=== PATIENT | female | born 1955 | race Caucasian/White ===

== ENCOUNTER → 2024-06-11 15:33 | Outpatient (REF) | payer MEDICARE, SELFPAY | LOC: RAD 15:33 | PROVIDERS: ATTENDING PHYSICIAN Registered Nurse; FAMILY PHYSICIAN Family Medicine | DX: G44.85 Primary stabbing headache (principal) | CPT/HCPCS: 70450 ==

== ENCOUNTER 2024-08-07 16:20 | Emergency (ER) | payer MEDICARE, SELFPAY ==
[2024-08-07 16:24] VITALS: BP 173/115
[2024-08-07 16:52] LABS: % Basophils 0.8 % (0-2); % Eosinophils 1.8 % (0-6); % Immature Granulocytes 0.4 % (0-0.5); % Lymphocytes 27.2 % (20.5-51.1); % Neutrophils 60.8 % (42.2-75.2); Absolute Basophils 0.1 10^3/uL (0-0.2); Absolute Eosinophils 0.1 10^3/uL (0-0.7); Absolute Lymphocytes 2.1 10^3/uL (1.2-3.4); Absolute Monocytes 0.7 10^3/uL (0.1-0.6); Absolute Neutrophils 4.7 10^3/uL (1.4-6.5); Hematocrit 37.2 % (37.0-47.0); Hemoglobin 12.8 g/dL (12.0-16.0); Mean Corp Hgb Conc. 34.4 g/dL (33.0-37.0); Mean Corpuscular Hgb 31.5 pg (27.0-31.0); Mean Corpuscular Volume 91.6 fL (81.0-99.0); Mean Platelet Volume 9.8 fL (7.4-10.4); Nucleated Red Blood Cells % 0 %; Platelet Count 261 10^3/uL (130-400); Red Blood Cell Count 4.06 10^6/uL (4.20-5.40); White Blood Cell Count 7.7 10^3/uL (4.8-10.8)
[2024-08-07 16:53] LABS: Urine Albumin Negative (Neg - Trace); Urine Bilirubin Negative (Negative); Urine Character Clear (Clear); Urine Color Yellow; Urine Glucose Negative (Negative); Urine Ketone Negative (Negative); Urine Leukocyte 1+ (Negative); Urine Nitrite Negative (Negative); Urine Occult Blood 4+ (Negative); Urine Urobilinogen Negative (Neg - 1+); Urine pH 6.5 (5.0-9.0)
[2024-08-07 17:02] LABS: Urine Red Blood Cell 21-25 /HPF (0-2)
[2024-08-07 17:03] LABS: Urine Bacteria Moderate (Negative)
[2024-08-07 17:22] LABS: ALT (SGPT) 20 U/L (0-35); AST (SGOT) 28 U/L (14-36); Albumin 4.5 g/dl (3.5-5.0); Alkaline Phosphatase 82 U/L (38-126); Blood Urea Nitrogen 18 mg/dl (7-17); Calcium 9.4 mg/dl (8.4-10.2); Carbon Dioxide 32 mmol/L (22-30); Chloride 100 mmol/L (98-107); Glucose 103 mg/dl (70-99); Potassium 4.1 mmol/L (3.5-5.1); Sodium 139 mmol/L (135-145); Total Bilirubin 0.2 mg/dl (0.2-1.3); Total Protein 7.1 g/dl (6.3-8.2); eGFR > 60.00
[2024-08-07 20:14] VITALS: BP 183/105
--- NOTE | 2024-08-07 20:15 | ED.GENMED ---
History of Present Illness
General
Chief Complaint: Urinary Symptoms
Source: patient
Exam Limitations: none
Time Seen by Provider: 08/07/24 20:06
History of Present Illness
History of Present Illness:
This is a 68 year old female that comes in with c/o blood in her urine. States that she noticed yesterday that there was a little blood on the paper when she wiped. State that today there was more bleeding and she noticed that her urethra was red
and that it was protruding a little. States that she has lower abd bloating and pressure. States that she has to bare down to urinate. States that she has also had a slight headache for the past couple of days. Denies any fever, chills, chest pain,
SOB, nausea, vomiting, diarrhea, dizziness, urinary burning.
Past History
Past History
ED Past Medical History: Arrthythmia (SVT 2009 and 08/2011 resolved with Adenosine.), Psychiatric (Anxiety) and Other (Renal calculus)
ED Past Surgical History: Gynecological (Hysterectomy) and Orthopedic (Right wrist surgery, )
Social History
Tobacco: Non-smoker
Alcohol: Daily (Wine 1 glass)
Personal:
Living: with family
Employment: Employed
Review of Systems
Review of Systems
All Other Systems: ROS reviewed and negative except as documented in HPI and ROS
Constitutional: Reports no symptoms; Denies fever or chills
EENT: Reports no symptoms
Respiratory: Reports no symptoms; Denies cough or trouble breathing
Cardiac: Reports no symptoms; Denies chest pain
ABD/GI: Reports abdominal pain; Denies nausea, vomiting or diarrhea
: Reports other (Has to bare down to urinate); Denies dysuria, frequency or urgency
Musculoskeletal: Reports no symptoms
Skin: Reports no symptoms
Neurological: Reports headache; Denies dizzy
Psychiatric: Reports no symptoms
Phy Exam
General Physical Exam
General Presentation: well appearing and no apparent distress
General age: appears stated age
General Skin: warm and dry
General Habitus: normal
General Mental: alert
General Hydration: appears well hydrated
ENT Exam
ENT Exam: TM's normal, pharynx normal and neck supple
Eye Exam
Eye Exam: EOMI
Cardiovascular Exam
Cardiovascular Exam: regular rate/rhythm, no edema, no murmur and normal peripheral pulses
Pulmonary Exam
Pulmonary Exam: lungs clear, no respiratory distress, no rales, chest non tender, no crackles, no rhonchi, no wheezing and no cough
Gastrointestinal Exam
Gastrointestinal Exam: normal bowel sounds, soft, no organomegaly, no pulsatile mass, non distended and tender (Suprapubic tenderness)
Genitourinary Exam Female
Exam Female: other (Urethra slightly red and protruding)
Musculoskeletal Exam
Musculoskeletal Exam: full ROM and no edema
Skin Exam
Skin Exam: normal color, warm/dry, no rash and no petechia
Psychiatric Exam
Psychiatric Exam: normal mood/affect
Course
Orders/Labs/Results
Orders:
Orders
08/07/24 16:33
CBC/With Diff [Complete Blood Count/With Diff] Urgent
CMP [Comprehensive Metabolic Panel] Urgent
Urinalysis Reflex To Culture Urgent
Date Specimen was Collected: 08/07/24
Time Specimen was Collected: 16:23
Urine Microscopic Reflex Cult Urgent
Urine Culture Urgent
JULIANNE Source: U
Specimen Description:
Date Specimen was Collected: 08/07/24
Time Specimen was Collected: 16:23
08/07/24 20:15
CT Abd/pel Without Iv Or Oral Urgent
Comment:
Reason For Exam: Lower abd pressure, Has to bare down to urinate
Abnormal Lab Results
08/07/24
16:33
RBC 4.06 L 10^6/uL
(4.20-5.40)
MCH 31.5 H pg
(27.0-31.0)
Absolute Monos (auto) 0.7 H 10^3/uL
(0.1-0.6)
Carbon Dioxide 32 H mmol/L
(22-30)
BUN 18 H mg/dl
(7-17)
Glucose 103 H mg/dl
(70-99)
Ur Occult Blood Reflex 4+ A
(Negative)
Leukocyte Esterase Rfl 1+ A
(Negative)
Urine RBC 21-25 A /HPF
(0-2)
Urine WBC (Reflex) 11-15 A /HPF
(0-5)
Urine Bacteria (Reflex) Moderate A
(Negative)
08/07/24 16:33
08/07/24 16:33
Very slight Dehydration. Glucose nonfasting. Urine positive for infection.
Vital Signs
Initial and Last Documented VS:
Initial Vital Signs
Temp Pulse Resp BP Pulse Ox
98.5 F 80 14 173/115 98
08/07/24 16:24 08/07/24 16:24 08/07/24 16:24 08/07/24 16:24 08/07/24 16:24
Last Documented Vital Signs
Temp Pulse Resp BP Pulse Ox
97.9 F 68 16 165/108 98
08/07/24 20:14 08/07/24 22:15 08/07/24 22:15 08/07/24 22:15 08/07/24 22:15
MDM/Problems Addressed
Differential Diagnosis Includes:
UTI, Renal calculus,
MDM/Problems Addressed:
This is a 68 year old female that comes in with c/o blood with urination and that her urethra is slightly red and protruding.
Will get labs, Urine and CT scan to r/o renal calculus
Back into see patient. Reviewed CT scan and explained that she is constipated, and that there is no obstructing stone. Will give patient antibiotic here and a bottle of magnesium citrate for home. Patient to follow up with the PCP for repeat urine
in a few days. Return with any concerns.
Chronic conditions affecting care:
Renal calculus
Acute Exacerbation and/or Progression of Chronic Illness:
Renal calculus
*Radiology
Radiology exam reviewed: radiology read reviewed (CT- Constipation with moderate to large colonic fecal burden. No obstructive uropathy. 2mm nonobstructing calculus in the lower pole of the right kidney. NO acute inflammatory process within the
abdomen or pelvis. Relatively stable oblong low-attenuation pancreatic structures, supporting a benign ) and all reviewed NAD by ED Provider (CT cont-etiology. 2 tiny low-attenuation hepatic structures, too small to fully characterize. Statistically
likely cysts. Pulmonary parenchymal disease process, as described. Consider the possibility of allergic bronchopulmonary aspergillosis. )
*Pulse Oximetry
Patient hypoxic: no
*EKG
Interpreted by ED Provider?: NA
Rate: EKG- N/A
*[employer] Interpretation
Rate: [employer]- N/A
*Critical Care Note
Total Time (30-74mins, 75-104mins- exclusive of procedures): Not Applicable
ED Attending Note
-
Portions of this chart may have been created with voice recognition software.� Occasional wrong word or��sound alike� substitutions may have occurred due to the inherent limitations of voice recognition software.
Discharge Plan
Departure
Patient Disposition: Home (Routine Discharge)
Date of Disposition: 08/07/24
Time of Disposition: 22:45
Patient with high blood pressure during this ER visit?: Yes
Condition: Good
Covid-19: Not Applicable
Discharge Problem:
Urinary tract infection, Constipation
Instructions: Urinary Tract Infection, Adult (DC), Constipation, Adult ED, BLOOD PRESSURE
Prescriptions:
No Action
ejygswhgxb-ynjjjktvkdck-lsvlfx 1 CAP capsule
1 cap PO DAILY
lorazepam 0.5 MG tablet
0.5 mg PO Q4HPRN PRN (Reason: anxiety)
cholecalciferol (vitamin D3) [Vitamin D3] 400 UNIT capsule
400 unit PO DAILY
docosahexaenoic acid-epa 1 CAP capsule
1 cap PO DAILY
alendronate [Fosamax] 40 MG tablet
40 mg PO WEEKLY
venlafaxine 37.5 MG tablet
37.5 mg PO DAILY
Referrals:
Herman Mathews Jr., DO [Family Provider] - Follow up in 5-7 days
Activity Restrictions/Additional Instructions:
As discussed, you are positive for a urinary tract infection. Your CT shows that you have constipated. There is no obstructing renal calculus. There is a 2mm stone in the right kidney. Please increase your water intake to 8-8oz glasses daily. You
have been given your antibiotic here which is a one time dose. Please follow up with the family doctor for a repeat urine to make sure the infection is gone. You have also been given a bottle of Magnesium citrate. Please drink the entire bottle as
this will work from the top down to help with the constipation. IF YOU HAVE ANY OTHER CONCERNS PLEASE RETURN TO THE EMERGENCY ROOM.
Interventions
Interventions:
*Risk Screen - Suicide Last Done: 08/07/24 20:10
*General Assessment Last Done: 08/07/24 20:10
*Neglect/Abuse Screening Last Done: 08/07/24 20:10
ED- Fall Risk Assessment Last Done: 08/07/24 20:10
*ED COVID-19 Vaccine History Last Done: 08/07/24 20:10
ED-Female Genitourinary Assessment Last Done: 08/07/24 20:10
Discharge Date and Time
Print Language: BURKIN[place]
[2024-08-07 20:18] VITALS: BP 180/114
[2024-08-07 22:15] VITALS: BP 165/108
[2024-08-07] MEDS: MONUROL 3 GM PO (23:12)
[2024-08-07] MEDS: CITROMA 300 ML PO (23:12)
[2024-08-07 23:17] VITALS: BP 178/117
[2024-08-07 23:20] VITALS: BMI 19.7
[2024-08-07] MEDS: APRESOLINE 5 MG IV (23:30)
[2024-08-07 23:45] VITALS: BP 151/95
[2024-08-08] VITALS: BP 146/100
== END 2024-08-08 00:15 | disposition home or self-care (01) ==
LOC: EMR 16:20
PROVIDERS: Emergency Medicine; EMERGENCY PHYSICIAN Emergency Medicine; FAMILY PHYSICIAN Family Medicine
DX: N39.0 Urinary tract infection, site not specified (principal); K59.00 Constipation, unspecified; E86.0 Dehydration; I47.10 Supraventricular tachycardia, unspecified; F41.9 Anxiety disorder, unspecified; Z87.442 Personal history of urinary calculi; Z90.710 Acquired absence of both cervix and uterus
CPT/HCPCS: 99284; 96374; 74176; 80053; 81003; 81015; 85025; 87086

== ENCOUNTER → 2024-09-02 09:46 | Outpatient (REF) | payer MEDICARE, SELFPAY | LOC: HWRAD 09:46 | PROVIDERS: ATTENDING PHYSICIAN Nurse Practitioner; FAMILY PHYSICIAN Family Medicine | DX: R31.0 Gross hematuria (principal) | CPT/HCPCS: 76770 ==

== ENCOUNTER → 2024-09-14 07:21 | Outpatient (REF) | payer MEDICARE, SELFPAY | LOC: RAD 07:21 | PROVIDERS: ATTENDING PHYSICIAN Family Medicine; FAMILY PHYSICIAN Family Medicine | DX: J47.9 Bronchiectasis, uncomplicated (principal) | CPT/HCPCS: 71270; Q9967 ==

== ENCOUNTER 2024-09-30 15:03 | Inpatient (IN) | payer MEDICARE, SELFPAY ==
[2024-09-30 10:50] VITALS: BP 139/105
--- NOTE | 2024-09-30 11:03 | ED.CVA ---
ED Provider Triage
<Caroline Castillo PA-C - Last Filed: 09/30/24 11:08>
-
Patient seen by provider in Triage?: Seen in Triage
68 y/o F
headache, n/v/ that started 3 days ago, was severe worst headache of life
felt pain in the bck of her head and on the left neck with dizziness
She says the headache eased up but then has returned today. She is also noticed that she called a little off balance. she has had some L facial tingling but was unware of facial droop
no h/o previous stroke
not tanticoagulated
A medical screening examination has been initiated by a qualified medical provider. Based on the assessment performed at this time, it has been determined that an emergent medical condition may exist and the patient has been informed that further
medical evaluation and possible additional diagnostic testing may be needed.
HPI: This is a medical evaluation conducted in person to initiate diagnostic evaluation and provide initial therapeutics. Please see further documentation by the treating clinician.
GENERAL: Alert , in no apparent distress
ENT: No visible abnormalities
LUNGS: No acute respiratory distress
NEUROLOGICAL: Alert and oriented x 3
L facial droop
normal forehead
no other deficitis on stroke exam
SKIN: Skin intact. No visible changes.
MUSCULOSKELETAL: Moving extremities normally
PSYCH: Normal and appropriate interaction.
NIH 1
symptoms > 72 hours
no IAT candidiate
but needs stroke w/u
also concern for dissection with the neck pain
cta head/neck, labs, ekg.
History of Present Illness
<Caroline Castillo PA-C - Last Filed: 09/30/24 11:08>
General
Chief Complaint: CVA/TIA Symptoms
Time Seen by Provider: 09/30/24 13:07
<Guillermo Pantoja DO - Last Filed: 09/30/24 13:25>
Onset of Stroke Symptoms
Onset of symptoms known: No
Time pt last seen normal is known: No
History of Present Illness
History of Present Illness:
See MDM
Past History
<Caroline Castillo PA-C - Last Filed: 09/30/24 11:08>
Past History
ED Past Medical History: Arrthythmia (SVT 2009 and 08/2011 resolved with Adenosine.), Psychiatric (Anxiety) and Other (Renal calculus)
ED Past Surgical History: Gynecological (Hysterectomy) and Orthopedic (Right wrist surgery, )
Social History
Tobacco: Non-smoker
Alcohol: Daily (Wine 1 glass)
Personal:
Living: with family
Employment: Employed
Phy Exam
<Guillermo Pantoja DO - Last Filed: 09/30/24 13:25>
Physical Exam
Physical Exam:
See MDM
Course
<Caroline Castillo PA-C - Last Filed: 09/30/24 11:08>
Orders/Labs/Results
Orders:
Orders
09/30/24 10:58
CT Head & Neck Angio W/wo IV Urgent
Comment:
Reason For Exam: teixeira/n/v
09/30/24 10:59
Electrocardiogram (*1) Urgent
Reason for Study: TIA/Stroke
EKG- Treatment ONCE
09/30/24 11:05
Complete Blood Count/With Diff Urgent
Comprehensive Metabolic Panel Urgent
PTT Urgent
Prothrombin Time Urgent
09/30/24 13:17
Osmolality, Random Urine Urgent
Urinalysis Reflex To Culture Urgent
Urine Creatinine Urgent
Urine Sodium Urgent
09/30/24 13:19
0.9% Sodium Chloride 1000 ml [Nss] 1,000 ml IV BOLUS
Abnormal Lab Results
09/30/24
11:05
MCH 32.0 H pg
(27.0-31.0)
Absolute Monos (auto) 1.0 H 10^3/uL
(0.1-0.6)
Lymphocytes % 15.1 L %
(20.5-51.1)
Monocytes % 11.2 H %
(1.7-9.3)
Sodium 121 L mmol/L
(135-145)
Potassium 2.9 L mmol/L
(3.5-5.1)
Chloride 80 L mmol/L
(98-107)
Creatinine 0.5 L mg/dL
(0.6-1.0)
Glucose 119 H mg/dl
(70-99)
AST 42 H U/L
(14-36)
09/30/24 11:05
09/30/24 11:05
Vital Signs
Initial and Last Documented VS:
Initial Vital Signs
Temp Pulse Resp BP Pulse Ox
98.0 F 76 16 139/105 98
09/30/24 10:50 09/30/24 10:50 09/30/24 10:50 09/30/24 10:50 09/30/24 10:50
Last Documented Vital Signs
Temp Pulse Resp BP Pulse Ox
98.0 F 76 16 139/105 98
09/30/24 10:50 09/30/24 10:50 09/30/24 10:50 09/30/24 10:50 09/30/24 10:50
<Guillermo Pantoja, DO - Last Filed: 09/30/24 13:25>
Orders/Labs/Results
Orders:
Orders
09/30/24 10:58
CT Head & Neck Angio W/wo IV Urgent
Comment:
Reason For Exam: teixeira/n/v
09/30/24 10:59
Electrocardiogram (*1) Urgent
Reason for Study: TIA/Stroke
EKG- Treatment ONCE
09/30/24 11:05
Complete Blood Count/With Diff Urgent
Comprehensive Metabolic Panel Urgent
PTT Urgent
Prothrombin Time Urgent
09/30/24 13:17
Osmolality, Random Urine Urgent
Urinalysis Reflex To Culture Urgent
Urine Creatinine Urgent
Urine Sodium Urgent
09/30/24 13:19
0.9% Sodium Chloride 1000 ml [Nss] 1,000 ml IV BOLUS
Abnormal Lab Results
09/30/24
11:05
MCH 32.0 H pg
(27.0-31.0)
Absolute Monos (auto) 1.0 H 10^3/uL
(0.1-0.6)
Lymphocytes % 15.1 L %
(20.5-51.1)
Monocytes % 11.2 H %
(1.7-9.3)
Sodium 121 L mmol/L
(135-145)
Potassium 2.9 L mmol/L
(3.5-5.1)
Chloride 80 L mmol/L
(98-107)
Creatinine 0.5 L mg/dL
(0.6-1.0)
Glucose 119 H mg/dl
(70-99)
AST 42 H U/L
(14-36)
09/30/24 11:05
09/30/24 11:05
Vital Signs
Initial and Last Documented VS:
Initial Vital Signs
Temp Pulse Resp BP Pulse Ox
98.0 F 76 16 139/105 98
09/30/24 10:50 09/30/24 10:50 09/30/24 10:50 09/30/24 10:50 09/30/24 10:50
Last Documented Vital Signs
Temp Pulse Resp BP Pulse Ox
98.0 F 76 16 139/105 98
09/30/24 10:50 09/30/24 10:50 09/30/24 10:50 09/30/24 10:50 09/30/24 10:50
<Guillermo Pantoja, DO - Last Filed: 09/30/24 13:25>
MDM/Problems Addressed
Differential Diagnosis Includes:
HPI and MDM Narrative:
68-year-old female sent in for possible stroke. Patient had developed generalized weakness and fatigued and questionable facial droop. This has been ongoing for several days. Patient was seen in triage. Given duration of symptoms, she is not a
stroke alert candidate. Blood work and CT done prior to my evaluation. CT question possible stroke but my NIH stroke scale was 0. More concerning, patient has a sodium level of 121 and she is clinically dry. She states she was recently put on
antibiotics by her assistant loan processor. Soon after starting antibiotics, she developed vomiting and diarrhea. Based on the symptomatic hyponatremia, case discussed with renal and we discussed treating with normal saline first pending urine studies. CT
mentioned possible frontal lobe stroke but it does not correlate with her current symptoms
Physical exam
General: Weak and fatigued
HEENT: protecting airway. Dry mucous membranes
Neck: appears supple
CV: No evidence of cyanosis
Resp: No accessory muscle use
Abd: Non-distended
Extremities: No deformities
Neuro: alert. No focal deficit
Psych: Normal affect
Skin: Intact
Problems Addressed including Acute and Chronic Conditions affecting care:
1. Symptomatic hyponatremia
Acuity: acute
Prognosis: stable
Details: Given that hyponatremia likely from GI loss, will start IV fluids.
2. Hypokalemia
Acuity: acute
Prognosis: stable
Details: Likely in the setting of GI loss. Will replete orally
Differential Diagnosis (but not limited to): Stroke, hyponatremia
Testing considered: CT angiogram head and neck
Drug therapy (if applicable): OTC meds, please see d/c instruction regarding Rx drugs
Amount and/or Complexity of Data Reviewed
Clinical info obtained from: Patient
External data reviewed: N/A
Labs I independently reviewed (but not limited to): Hyponatremia, hypokalemia
Radiology: The CT scan was personally and independently reviewed. In addition, official CT report reviewed.
Pulse Ox: not hypoxic
EKG independently reviewed: Sinus rhythm, normal axis, no STEMI
Veterinary Anatomist: Sinus rhythm
Critical Care: N/A
Risk of Complication:
Social Determinants of health: Good social support
Discussed with other providers: hospitalist
Escalation of Care includes Admit/Obs: Given symptomatic hyponatremia, will admit
Occasional wrong word or 'sound a like' substitutions may have occurred due to the inherent limitations of voice recognition software. Read the chart carefully and recognize, using context, where substitutions have occurred.
<Guillermo Pantoja DO - Last Filed: 09/30/24 13:25>
*Critical Care Note
Total Time (30-74mins, 75-104mins- exclusive of procedures): Not Applicable
ED Attending Note
<Caroline Castillo PA-C - Last Filed: 09/30/24 11:08>
-
Portions of this chart may have been created with voice recognition software.� Occasional wrong word or��sound alike� substitutions may have occurred due to the inherent limitations of voice recognition software.
Discharge Plan
Departure
Patient Disposition: Admit
Date of Disposition: 09/30/24
Time of Disposition: 13:21
Admit to: Telemetry
Presentation/result/management discussed w/ accepting MD/: Hospitalist
Discharge Problem:
Acute hyponatremia, Hypokalemia
Prescriptions:
No Action
gkkypynvzz-tbjixwmxtqxy-qscmbh 1 CAP capsule
1 cap PO DAILY
lorazepam 0.5 MG tablet
0.5 mg PO Q4HPRN PRN (Reason: anxiety)
cholecalciferol (vitamin D3) [Vitamin D3] 400 UNIT capsule
400 unit PO DAILY
docosahexaenoic acid-epa 1 CAP capsule
1 cap PO DAILY
alendronate [Fosamax] 40 MG tablet
40 mg PO WEEKLY
venlafaxine 37.5 MG tablet
37.5 mg PO DAILY
Interventions
Interventions:
*Risk Screen - Suicide Last Done: 09/30/24 10:50
*Neglect/Abuse Screening Last Done: 09/30/24 10:50
Discharge Date and Time
Print Language: CITIZEN OF [place]
[2024-09-30 11:19] LABS: % Basophils 0.1 % (0-2); % Eosinophils 0.1 % (0-6); % Immature Granulocytes 0.2 % (0-0.5); % Lymphocytes 15.1 % (20.5-51.1); % Monocytes 11.2 % (1.7-9.3); % Neutrophils 73.3 % (42.2-75.2); Absolute Lymphocytes 1.3 10^3/uL (1.2-3.4); Absolute Neutrophils 6.4 10^3/uL (1.4-6.5); Hematocrit 40.3 % (37.0-47.0); Hemoglobin 14.8 g/dL (12.0-16.0); Mean Corp Hgb Conc. 36.7 g/dL (33.0-37.0); Mean Platelet Volume 9.5 fL (7.4-10.4); Nucleated Red Blood Cells % 0 %; Platelet Count 286 10^3/uL (130-400); Red Blood Cell Count 4.63 10^6/uL (4.20-5.40); Red Cell Dist. Width 11.9 % (11.5-14.5); White Blood Cell Count 8.7 10^3/uL (4.8-10.8)
[2024-09-30 11:32] LABS: ALT (SGPT) 28 U/L (0-35); AST (SGOT) 42 U/L (14-36); Alkaline Phosphatase 64 U/L (38-126); Blood Urea Nitrogen 11 mg/dl (7-17); Calcium 9.5 mg/dl (8.4-10.2); Carbon Dioxide 29 mmol/L (22-30); Chloride 80 mmol/L (98-107); Glucose 119 mg/dl (70-99); Potassium 2.9 mmol/L (3.5-5.1); Sodium 121 mmol/L (135-145); Total Bilirubin 0.8 mg/dl (0.2-1.3); Total Protein 7.7 g/dl (6.3-8.2); eGFR > 60.00
[2024-09-30 11:34] LABS: INR 0.92; PT 12.8 Sec (11.4-14.6)
[2024-09-30 13:17] VITALS: BP 152/102
[2024-09-30] MEDS: KLOR-CON 40 MEQ PO (13:37)
[2024-09-30] MEDS: NSS 1000 IV (13:37)
--- NOTE | 2024-09-30 13:42 | W.PN.UPDATE ---
Update Note
Progress Note Update
I personally performed a history and physical exam of the patient and discussed management with the resident. I reviewed the resident's note and agree with the documented findings and plan of care HPI/CC.
68-year-old female presents with nausea and vomiting as well as headache after being started on antibiotics for MAC by her press operator apprentice approximately 3 days ago. Also reports that her thinking is slightly 'foggy.'
Gen: NAD, AAOx3.
Eyes: EOMI, PERRLA, no scleral icterus.
Neck: supple.
CV: RRR, +S1/S2, no m/r/g.
Resp: CTAB, no rales, wheezes, or rhonchi.
Abd: +BS, soft, NT, ND
Skin: No rashes.
Neuro: CN 2-12 intact, non-focal.
Psych: Normal mood and affect.
Lab Results
09/30/24
11:05
WBC 8.7
RBC 4.63
Hgb 14.8
Hct 40.3
MCV 87.0
MCH 32.0 H
MCHC 36.7
RDW 11.9
Plt Count 286
MPV 9.5
Abs Immat Gran (auto) 0.0
Absolute Neuts (auto) 6.4
Absolute Lymphs (auto) 1.3
Absolute Monos (auto) 1.0 H
Absolute Eos (auto) 0.0
Absolute Basos (auto) 0.0
Immature Gran % 0.2
Neutrophils % 73.3
Lymphocytes % 15.1 L
Monocytes % 11.2 H
Eosinophils % 0.1
Basophils % 0.1
Nucleated RBC % 0
PT 12.8
INR 0.92
APTT 29.0
Sodium 121 L
Potassium 2.9 L
Chloride 80 L
Carbon Dioxide 29
BUN 11
Creatinine 0.5 L
eGFR > 60.00
Glucose 119 H
Calcium 9.5
Total Bilirubin 0.8
AST 42 H
ALT 28
Alkaline Phosphatase 64
Total Protein 7.7
Albumin 5.0
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 As warranted, consideration for further evaluation
with MRI of the brain. No evidence for significant narrowing of the common carotid arteries, carotid bulbs, or internal carotid arteries bilaterally. No significant narrowing of vertebral or basilar arteries. No evidence for intracranial large
vessel occlusion or high-grade stenosis. Not mentioned above, on sagittal reconstructions, incidental note is made of partially empty sella. This is often an incidental finding of no clinical significance, although it does have an association with
idiopathic intracranial hypertension. Many patients are asymptomatic and endocrinologically normal, although with some increasing reports of variable hypopituitarism and hyperprolactinemia. Heterogeneity of the thyroid gland, but with no evidence
for a nodule measuring greater than 1.5 cm. Based on recommendations from the air column radiology, no further imaging follow-up is felt to be needed.
Severe hypovolemic hyponatremia:
-likely due to GI losses (vomiting) as well as possible SIADH related to pain from h/a
-discussed with renal, NS for now (no 3%)
-check serum Osm, UOsm, Javed
-BMP Q4H
Other problems:
Hypokalemia: 80meq K now, check Mg
h/o SVT resolved with adenosis
Anxiety
FULL/Lovenox
--- NOTE | 2024-09-30 13:54 | HPS.HSE ---
Family Physician
-
Family Physician: Herman Mathews Jr.
Chief Complaint
-
Headache
History of Present Illness
68 y/o F, Full code, with past medical history of arrhythmia, anxiety, renal calculus has a headache with associated nausea,vomiting, dizziness that started 3 days ago. The headache is located posteriorly on the back of the head, is rated moderate
to severe in intensity, intermittent in nature, and radiates down to the left side of the neck. The headache started on Saturday and was associated with 10 episodes of non bloody diarrhea, and then on Saturday she had more than 3 episodes of non bloody
vomiting. On Saturday the headache started to subside a little but then it started to get worse again and patient was admitted to the ER.
Medical History
Past Medical History
Past Medical History: Reports Arrhythmia, Psychiatric (Anxiety) and Other (Renal calculus)
Past Surgical History: Reports Gynocological (Hysterectomy) and Orthopedic (Right wrist surgery)
Social History
Tobacco: Non-smoker
Alcohol: Daily (1 glass of wine)
Drug: None
Personal:
Living: With Family
Family History
Family History: Not pertinent
Allergies / Home Medications
Allergies reflects when Allergies were last updated in [facility].
Home Medications with original date entered in [facility]
Allergy/Medication List:
Allergies
Allergy/AdvReac Type Severity Reaction Status Date / Time
Cephalosporins Allergy Rash Verified 09/30/24 10:54
ciprofloxacin Allergy HIVES Verified 09/30/24 10:54
*ANAPHYLAXIS
penicillin G Allergy Rash Verified 09/30/24 10:54
Penicillins Allergy Rash Verified 09/30/24 10:54
Quinolones Allergy Pharmacy Verified 09/30/24 10:54
to Review
SENSATIVE TO ALL ABX Allergy 'CAN TAKE Uncoded 09/30/24 10:54
Z-ANGIE'
Home Medications
ovcihvoxcr-irenbxdvieoe-rdefda 100 mg-500 mg-50 mg capsule 1 cap PO DAILY 10/29/09
cholecalciferol (vitamin D3) 10 mcg (400 unit) capsule (Vitamin D3) 400 unit PO DAILY 08/29/11
docosahexaenoic acid (dha)-epa 120 mg-180 mg capsule 1 cap PO DAILY 08/29/11
lorazepam 0.5 mg tablet 0.5 mg PO Q4HPRN PRN anxiety 08/29/11
alendronate 40 mg tablet (Fosamax) 40 mg PO WEEKLY 07/06/17
venlafaxine 37.5 mg tablet 37.5 mg PO DAILY 07/06/17
Review of Systems
-
History Source: Patient
Constitutional: Denies Fever or Fatigue
EENT: Reports Other (headache); Denies Sore Throat
Respiratory: Denies Cough or Trouble Breathing
Cardiac: Denies Chest Pain, Diaphoresis, Palpitations or Syncope
Abdomen/GI: Reports Vomiting and Diarrhea; Denies Abdominal Pain or Nausea
: Denies Dysuria or Flank Pain
Endocrine: Denies Polyuria or Polydipsia
Physical Exam
Vital Signs
Vital Signs
Temp Pulse Resp BP Pulse Ox
98.0 F 76 16 139/105 98
09/30/24 10:50 09/30/24 10:50 09/30/24 10:50 09/30/24 10:50 09/30/24 10:50
Physical Exam
Respiratory: Clear and Clear to Percussion
Cardiac: S1/S2 and Regular Rhythm; No Peripheral Edema
GI: Soft, Non Tender, Non Distended and Normal Bowel Sounds
Musculoskeletal: No Clubbing, No Cyanosis and No Edema
Skin: Warm and Dry
Neuro: Awake, Alert, Oriented and AO x 3
Psych: Calm
Laboratory Results
-
09/30/24 11:05
Laboratory Results
PT 12.8 Sec (11.4-14.6) 12/11/24 11:05
INR 0.92 09/30/24 11:05
APTT 29.0 Sec (23.4-35.0) 09/30/24 11:05
Total Bilirubin 0.8 mg/dl (0.2-1.3) 09/30/24 11:05
AST 42 U/L (14-36) H 09/30/24 11:05
ALT 28 U/L (0-35) 09/30/24 11:05
Alkaline Phosphatase 64 U/L (38-126) 09/30/24 11:05
Data Reviewed
-
Medical Tests (Nuc Med, Echo, EKG etc): Image Personally Visualized and interpreted and Discussed with Physician
Lab Data: Labs Reviewed by me and Discussed with Physician
Impression/Plan
-
Moderate hyponatremia:
-Most likely due to multiple episodes of vomiting and diarrhea
-Ordered normal saline
-Check BMP every 4 hours
-Check serum osmolality, urine sodium, urine osmolality
-As needed Zofran for nausea
Headache:
-As needed pain control with Tylenol and tramadol
Focus of decreased density within white matter of left frontal lobe:
-Head neck CTA showed this finding
-MRI brain without contrast
Anxiety:
-Hold venlafaxine as it can cause hyponatremia
-Continue lorazepam
DVT PPx: Lovenox
[2024-09-30 14:01] VITALS: BP 165/109
[2024-09-30] MEDS: KCL 270 MEQ IV (14:18)
[2024-09-30] MEDS: TYLENOL 650 MG PO ×3 (14:48→23:05)
[2024-09-30 15:17] LABS: Blood Urea Nitrogen 9 mg/dl (7-17); Calcium 8.4 mg/dl (8.4-10.2); Carbon Dioxide 27 mmol/L (22-30); Chloride 87 mmol/L (98-107); Glucose 98 mg/dl (70-99); Potassium 3.7 mmol/L (3.5-5.1); Sodium 122 mmol/L (135-145); eGFR > 60.00
[2024-09-30 15:22] LABS: Osmolality Serum 245 mOsm/kg (275-300)
--- NOTE | 2024-09-30 15:22 | W.PN.UPDATE ---
Update Note
Progress Note Update
suspected Mycobacterium avium complex infection:
- patient not able to take full course of antibiotics due to headache and vomiting
- consulted pulmonary medicine
[2024-09-30 15:41] LABS: Urine Albumin Negative (Neg - Trace); Urine Bilirubin Negative (Negative); Urine Character Clear (Clear); Urine Color Straw; Urine Glucose Negative (Negative); Urine Ketone Negative (Negative); Urine Leukocyte Negative (Negative); Urine Nitrite Negative (Negative); Urine Occult Blood 1+ (Negative); Urine Urobilinogen Negative (Neg - 1+)
--- NOTE | 2024-09-30 15:43 | CON.ID ---
Consultation
-
Date/Time Consultation Requested: September 30, 2024 1535
Date/Time Consultation Performed: September 30, 2024 1545
Requesting Provider: Dr. Jose Luis Zhu
Performing Provider: Dr. Baylee Lorenzana
Reason for Consultation: Suspected DANE on tx with N/V
Chief Complaint / Past History
Chief Complaint
SHANE/dizziness/N/V
History of Present Illness
68 year old female hx of nephrolithiasis with recent incidental finding of bronchiectasis on CT a/p then confirmed by Chest CT. She saw pulmonary on 09/15 who suspected DANE and instructed her to submit sputum for cx, AFB, and fungal then start
cefpodoxime and azithromycin for presumed bacterial PNA as she was having congestion (pt reports from allergies). Since she was not able to produce sputum, she was instructed to go ahead and start the antibiotics 09/25. On Saturday, she started
with SHANE, 9-10 episodes of diarrhea. She stopped the antibiotics on 09/28. Later that day, she had N/V. Her PCP prescribed Zofran on 09/29 with improvement. Diarrhea did resolve. However she felt weak, dizzy, and worsening SHANE. She was
orthostatic hypotension at PCP's office today and therefore she was sent to the ED. She is hyponatremic 121, hypokalemic 2.9. She had low great temp of 99 three days ago. No chills. Nausea now mild. No further diarrhea since Saturday. SHANE is located
on top of head radiating to back. No neck stiffness. Pt reports she tolerated azithromycin in the past. Pt denies persistent cough. She has occasional cough from allergic rhinitis. No SOB. She can walk 3 or more flights of steps without SOB. She
remains active. No significant weight loss.
Past History
Additional Past Medical History:
Bronchiectasis
nephrolithiasis
PSVT
Anxiety/depression
Multinodular non-toxic goiter
R wrist ORIF surgery
VICTORINA/BSO
Allergy History:
Cephalosporins Allergy (Verified 09/30/24 10:54)
Rash
ciprofloxacin Allergy (Verified 09/30/24 10:54)
HIVES *ANAPHYLAXIS
penicillin G Allergy (Verified 09/30/24 10:54)
Rash
Penicillins Allergy (Verified 09/30/24 10:54)
Rash
Quinolones Allergy (Verified 09/30/24 10:54)
Pharmacy to Review
SENSATIVE TO ALL ABX Allergy (Uncoded 09/30/24 10:54)
'CAN TAKE Z-ANGIE'
Medications Reviewed: Yes
Current Antibiotics:
none
Social History
Tobacco: Former Smoker
Alcohol: Daily (1 glass of wine a day)
Drug: None
Personal:
Family History
Family History: Not Pertinent
Review of Systems
Vital Signs
Temp Pulse Resp BP Pulse Ox
98.0 F 80 10 165/109 98
09/30/24 10:50 09/30/24 14:01 09/30/24 14:01 09/30/24 14:01 09/30/24 10:50
Physical Exam
Physical Exam
Constitutional: No Acute Distress, Comfortable and Non-toxic
Head: Other (No frontal or maxillary sinus tenderness)
Eyes: No Conjunctival Hemorrhage and Sclera Anicteric
Cardiovascular: Regular Rate and S1/S2
Pulmonary: Coarse (coarse crackles right base)
Gastrointestinal: Soft, Non Tender, Non Distended and Normal Bowel Sounds
Genito-Urinary: Negative CVA Tenderness
Extremities: Negative Edema
Neurological: AO x 3; Negative Meningeal Signs
Lab / Diagnostic Study Results
09/30/24 11:05
Abs Immat Gran (auto) 0.0 10^3/uL (0-0.05) 09/30/24 11:05
Absolute Neuts (auto) 6.4 10^3/uL (1.4-6.5) 09/30/24 11:05
Absolute Lymphs (auto) 1.3 10^3/uL (1.2-3.4) 09/30/24 11:05
Absolute Monos (auto) 1.0 10^3/uL (0.1-0.6) H 09/30/24 11:05
Absolute Basos (auto) 0.0 10^3/uL (0-0.2) 09/30/24 11:05
Immature Gran % 0.2 % (0-0.5) 09/30/24 11:05
Neutrophils % 73.3 % (42.2-75.2) 09/30/24 11:05
Lymphocytes % 15.1 % (20.5-51.1) L 09/30/24 11:05
Monocytes % 11.2 % (1.7-9.3) H 09/30/24 11:05
Eosinophils % 0.1 % (0-6) 09/30/24 11:05
Basophils % 0.1 % (0-2) 09/30/24 11:05
PT 12.8 Sec (11.4-14.6) 09/30/24 11:05
INR 0.92 09/30/24 11:05
Microbiology Results
Micro:
09/30/24 15:34 Legionella Urinary Antigen - Pending
Urine
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 As warranted, consideration
for further evaluation with MRI of the brain.
09/14/24 CT chest: Mild bronchiectasis within the inferior lingula, adjacent bands of parenchymal opacity compatible with linear atelectasis and/or scarring. Mild bronchiectasis within the inferior and lateral left lower lobe of the lung. Adjacent
small nodular and linear densities which could represent scarring or small airway pneumonitis. Linear densities within the inferior right middle lobe, compatible with scarring and/or atelectasis. Ascending aorta has short axis diameter of 3.8 cm,
at the level the right main pulmonary artery, in the upper range of normal.
Assessment / Plan
#Severe abx intolerance (likely cefpodoxime) with N/V/D, SHANE
# Hypovolemia with electrolyte abnormalities due to above
# Bronchiectasis
-Pulm DANE suspected but NOT proven without positive sputum x 3 or 1+ from bronch
-Even if DANE is positive, she is asymptomatic and therefore DOES NOT meet criteria to treat which requires prolonged multi-drug regimen with numerous adverse effects.
- The recent antibiotics she received azithromycin, cefpodoxime were presumably to treat bacterial pneumonia, NOT DANE. Again, she does not have pulm sxs to suggest active pneumonia. Recommend observe off abx.
Call if any questions.
Care Review
Plan reviewed with: Physician (Dr. Ashley Edwards)
[2024-09-30 15:49] LABS: Osmolality Urine 93 mOsm/kg (300-900)
[2024-09-30 15:51] LABS: Urine Squamous Cell 16-20 /LPF (Few)
[2024-09-30 15:52] LABS: Urine Bacteria Few (Negative); Urine White Cell 0-2 /HPF (0-5)
--- NOTE | 2024-09-30 15:56 | CON.PUL ---
Consultation
Consultation Request
Date/Time Consultation Requested: 09/30/24
Date/Time Consultation Performed: 09/30/24
Performing Provider: Grace
Reason for Consultation: Bronchiectasis, possible DANE
Medical History
-
History of Present Illness:
Patient is a 68-year-old female with previous history of bronchiectasis, renal calculus, anxiety presenting to ER with headache, profuse nausea/vomiting and diarrhea which occurred 3 days ago. She notes that she had been recently started on
antibiotics including cefpodoxime and azithromycin. She notes that upon initiation of antibiotic she developed profuse GI symptoms. She had no other symptoms prior to antibiotic use. She had a minor cough, CT from 1125 demonstrating mild
bronchiectasis. She had a possible suspicion for DANE due to nodular opacities but never could produce sputum culture results. Serum sodium on arrival 121 with chloride 80. She is admitted for acute hyponatremia.
Past Medical History
Past Medical History: Other (see list below)
Social History
Tobacco: Non-smoker
Alcohol: None
Drug: None
Family History
Family History: Reviewed & Not Pertinent
Allergies / Home Medications
Allergies
Allergy/AdvReac Type Severity Reaction Status Date / Time
Cephalosporins Allergy Rash Verified 09/30/24 10:54
ciprofloxacin Allergy HIVES Verified 09/30/24 10:54
*ANAPHYLAXIS
penicillin G Allergy Rash Verified 09/30/24 10:54
Penicillins Allergy Rash Verified 09/30/24 10:54
Quinolones Allergy Pharmacy Verified 09/30/24 10:54
to Review
SENSATIVE TO ALL ABX Allergy 'CAN TAKE Uncoded 09/30/24 10:54
Z-ANGIE'
Home Medications
�Medication �Instructions �Recorded �Confirmed �Last Taken �Type
lorazepam 0.5 mg tablet 0.5 mg PO DAILYPRN PRN anxiety 08/29/11 09/30/24 09/29/24 History
Lactobac no.2-Bifidobac no.1-S. 1 cap PO DAILY 09/30/24 09/30/24 09/28/24 History
thermo 112.5 billion cell capsule
(Visbiome)
acetaminophen 325 mg tablet 650 mg PO Q4HPRN PRN mild pain 09/30/24 09/30/24 09/30/24 History
azithromycin 250 mg tablet 0 mg PO .COMPLEX 09/30/24 09/30/24 09/28/24 History
cefdinir 300 mg capsule 300 mg PO BID 09/30/24 09/30/24 09/28/24 History
cholecalciferol (vitamin D3) 25 50 mcg PO DAILY 09/30/24 09/30/24 09/28/24 History
mcg (1,000 unit) tablet (Vitamin
D3)
estradiol 0.01% (0.1 mg/gram) 1 applic vaginal WESA 09/30/24 09/30/24 09/26/24 History
vaginal cream (Estrace)
mv-mn-folic 200 mcg-vit K 15 1 cap PO BID 09/30/24 09/30/24 Unknown History
mcg-lutein 5 mg-zeaxanthin 1 mg
capsule (PreserVision AREDS 2 Plus
Multivit)
ondansetron 8 mg disintegrating 8 mg PO Q8HPRN PRN nausea 09/30/24 09/30/24 09/30/24 History
tablet
polyethylene glycol 3350 17 gram 17 g PO DAILY 09/30/24 09/30/24 09/30/24 History
oral powder packet (Miralax)
venlafaxine 150 mg 150 mg PO DAILY 09/30/24 09/30/24 Unknown History
capsule,extended release 24 hr
Review of Systems
-
History Source: Patient
All other systems: Negative unless noted
Vitals / Labs / Diagnostic Testing
Vital Signs
Temp Pulse Resp BP Pulse Ox
98.0 F 80 10 165/109 98
09/30/24 10:50 09/30/24 14:01 09/30/24 14:01 09/30/24 14:01 09/30/24 10:50
Lab Data
09/30/24 11:05
Laboratory Results
09/30/24
11:05
PT 12.8
INR 0.92
APTT 29.0
Diagnostic Testing:
Physical Exam
-
HEENT: Normocephalic, Anicteric and Moist Mucous Membranes
Cardiovascular: S1/S2 and Regular Rhythm
Respiratory: Clear and Non-Labored Respirations
GI: Soft, Non Distended and Non Tender
Neurology: Awake, Alert, Oriented and No Motor Deficits
Skin: Warm, Dry and Good Color
General: Comfortable and Other (NAD)
Assessment
-
Patient is a 68-year-old female with previous history of bronchiectasis, renal calculus, anxiety presenting to ER with headache, profuse nausea/vomiting and diarrhea which occurred 3 days ago. She notes that she had been recently started on
antibiotics including cefpodoxime and azithromycin. She notes that upon initiation of antibiotic she developed profuse GI symptoms. She had no other symptoms prior to antibiotic use. She had a minor cough, CT from 1125 demonstrating mild
bronchiectasis. She had a possible suspicion for DANE due to nodular opacities but never could produce sputum culture results. Serum sodium on arrival 121 with chloride 80. She is admitted for acute hyponatremia.
Acute hyponatremia likely from GI losses
Acute nausea/vomiting/diarrhea likely from antibiotics
Headaches
Hypokalemia
Conditions present prior to admission
Cough, bronchiectasis
Anxiety
Renal calculi
Hysterectomy
Right wrist surgery
Plan
No oxygen was needed on admission, currently saturating 99% on RA
She did not require oxygen at home
Prior history of lung disease is noted including bronchiectasis on CT
She notes that prior to antibiotic use, her only complaint was dry cough
She was placed on antibiotics for presumed DANE
She has no sputum culture in the record to confirm diagnosis
Suspect patient has hyponatremia from antibiotic use, she had no symptoms prior
She denies any sick exposures/contacts
CXR/CT obtained indicating patchy opacities, possibly related to NTM
Will check sputum cultures x 3 for AFB
Recommend ID consult for antibiotic recommendation
If unable to produce sputum cultures, we have discussed diagnostic bronchoscopy
She was agreeable
I would wait to undergo diagnostic bronchoscopy until sodium normalizes
Serum sodium, 121-acute loss
Hypokalemia noted as well, repletion per team
CT head thus far negative, may consider MRI of the brain
May need renal consult if sodium is not improving
No prior history of cardiac disease
Prior ECHO results are reviewed indicating stable function
We will follow
Diagnostic Data
Chest X-Ray:
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 As warranted, consideration for
further evaluation with MRI of the brain.
No evidence for significant narrowing of the common carotid arteries, carotid bulbs, or internal carotid arteries bilaterally.
No significant narrowing of vertebral or basilar arteries.
No evidence for intracranial large vessel occlusion or high-grade stenosis.
Not mentioned above, on sagittal reconstructions, incidental note is made of partially empty sella. This is often an incidental finding of no clinical significance, although it does have an association with idiopathic intracranial hypertension. Many
patients are asymptomatic and endocrinologically normal, although with some increasing reports of variable hypopituitarism and hyperprolactinemia.
Heterogeneity of the thyroid gland, but with no evidence for a nodule measuring greater than 1.5 cm. Based on recommendations from the air column radiology, no further imaging follow-up is felt to be needed.
CHEST 09/14/24- Mild bronchiectasis within the inferior lingula, adjacent bands of parenchymal opacity compatible with linear atelectasis and/or scarring.
Mild bronchiectasis within the inferior and lateral left lower lobe of the lung. Adjacent small nodular and linear densities which could represent scarring or small airway pneumonitis.
Linear densities within the inferior right middle lobe, compatible with scarring and/or atelectasis.
Ascending aorta has short axis diameter of 3.8 cm, at the level the right main pulmonary artery, in the upper range of normal.
Echo: 10/25/20- Normal left ventricular size, wall thickness and systolic function. No regional wall motion abnormalities are seen. LV ejection fraction is 61% by Vazquez's biplane method of discs. Normal diastolic function. Normal right ventricular
size and function. Mitral valve opens normally. Mild prolapse of the posterior mitral leaflet was present. Mild mitral regurgitation. Trileaflet aortic valve with normal leaflet excursion. No aortic regurgitation is seen. Tricuspid valve opens
normally. Mild tricuspid regurgitation. Estimated pulmonary artery pressure of 26 mmHg assuming a right atrial pressure of 3 mmHg.
PFT's:
Reports and relevant images were personally reviewed.
Total time spent on this consultation __75__ minutes which includes review of history, physical exam, medications, laboratory data, personal review of imaging, extensive review of outpatient records, discussion with care team and respiratory therapy.
[2024-09-30 16:00] VITALS: BP 135/105
[2024-09-30 16:05] LABS: Urine Sodium 14 mmol/L (30-90)
[2024-09-30] MEDS: SODIUM CHLORIDE 10% 0.2 VIAL INH (16:40)
--- NOTE | 2024-09-30 16:59 | W.CON.NEPH ---
Addendum entered and electronically signed by Larry Casanova, 09/30/24 17:37:
After further data evaluation will hold on IV fluids and continue with fluid restriction
Original Note:
Consultation
-
Date/Time Consultation Requested: September 30, 2024 2 PM
Date/Time Consultation Performed: September 30, 2024 at 5 PM
Requesting Provider: Dr. Zhu
Performing Provider: Dr. Larry Casanova
Reason for Consultation: Hyponatremia
Medical History
-
Chief Complaint: Hyponatremia
History of Present Illness:
68 y/o F, Full code, with past medical history of arrhythmia, anxiety, renal calculus has a headache with associated nausea,vomiting, dizziness that started 3 days ago. As well as headache. This began Saturday through Saturday increasing on Saturday
with diarrhea.
Renal consult for hyponatremia 121 on admission with a potassium of 2.9 at 11 AM. Repeat labs were done at 1400 hrs. with improvement in potassium and serum sodium of 122 and normalized potassium
Reviewing records from previous stated no history of hyponatremia
Recently started on antibiotics for incidental finding on CAT scan for MAC.
Decreased p.o. intake over the last 3 days no excessive water intake and no NSAID use she did take Advil 1 time on Saturday
Is not on thiazide diuretic
No history of alcohol use
She currently seen in the ER denies any chest pain shortness of breath nausea vomit she still has a headache
Past Medical History
Arrhythmia, Psychiatric (Anxiety) and Other (Renal calculus)
Social History
No history of smoking
No excessive alcohol
Family History
no renal disease
Allergies / Home Medications
Allergy/AdvReac Type Severity Reaction Status Date / Time
Cephalosporins Allergy Rash Verified 09/30/24 10:54
ciprofloxacin Allergy HIVES Verified 09/30/24 10:54
*ANAPHYLAXIS
penicillin G Allergy Rash Verified 09/30/24 10:54
Penicillins Allergy Rash Verified 09/30/24 10:54
Quinolones Allergy Pharmacy Verified 09/30/24 10:54
to Review
SENSATIVE TO ALL ABX Allergy 'CAN TAKE Uncoded 09/30/24 10:54
Z-ANGIE'
�Medication �Instructions �Recorded �Confirmed �Type
lorazepam 0.5 mg tablet 0.5 mg PO DAILYPRN PRN anxiety 08/29/11 09/30/24 History
Lactobac no.2-Bifidobac no.1-S. 1 cap PO DAILY 09/30/24 09/30/24 History
thermo 112.5 billion cell capsule
(Visbiome)
acetaminophen 325 mg tablet 650 mg PO Q4HPRN PRN mild pain 09/30/24 09/30/24 History
azithromycin 250 mg tablet 0 mg PO .COMPLEX 09/30/24 09/30/24 History
cefdinir 300 mg capsule 300 mg PO BID 09/30/24 09/30/24 History
cholecalciferol (vitamin D3) 25 50 mcg PO DAILY 09/30/24 09/30/24 History
mcg (1,000 unit) tablet (Vitamin
D3)
estradiol 0.01% (0.1 mg/gram) 1 applic vaginal WESA 09/30/24 09/30/24 History
vaginal cream (Estrace)
mv-mn-folic 200 mcg-vit K 15 1 cap PO BID 09/30/24 09/30/24 History
mcg-lutein 5 mg-zeaxanthin 1 mg
capsule (PreserVision AREDS 2 Plus
Multivit)
ondansetron 8 mg disintegrating 8 mg PO Q8HPRN PRN nausea 09/30/24 09/30/24 History
tablet
polyethylene glycol 3350 17 gram 17 g PO DAILY 09/30/24 09/30/24 History
oral powder packet (Miralax)
venlafaxine 150 mg 150 mg PO DAILY 09/30/24 09/30/24 History
capsule,extended release 24 hr
Review of Systems
-
History Source: Patient
All other systems: Negative unless noted
EENT: Other (Headache)
Physical Exam
Vital Signs
Vital Signs
Temp Pulse Resp BP Pulse Ox
98.0 F 83 12 165/109 99
09/30/24 10:50 09/30/24 16:46 09/30/24 16:46 09/30/24 14:01 09/30/24 16:46
Lab Results
Sodium 121
WBC 8.7 10^3/uL (4.8-10.8) 09/30/24 11:05
RBC 4.63 10^6/uL (4.20-5.40) 09/30/24 11:05
Hgb 14.8 g/dL (12.0-16.0) 09/30/24 11:05
Hct 40.3 % (37.0-47.0) 09/30/24 11:05
Plt Count 286 10^3/uL (130-400) 09/30/24 11:05
eGFR > 60.00 09/30/24 14:50
Albumin 5.0 g/dl (3.5-5.0) 09/30/24 11:05
Physical Exam
General no acute distressGeneral no acute distress HEENT no cephalic atraumatic extraocular muscle intact no scleral icterus no JVD neck supple lungs clear to auscultation bilateral heart regular S1-S2 positive abdomen soft nontender positive bowel
sounds extremities no edema pulses
Data Reviewed
-
Radiology: Report Reviewed by me (CTA reviewed no acute pathology)
Labs: Labs Reviewed by me
Assessment/Plan
-
Impression
#1 hyponatremia
#2 hypokalemia
#3 nausea vomiting diarrhea
4 anxiety/depression
Plan
Sodium 121 at 11 AM.
Repeat sodium 122 at 1400 hrs.
Urine sodium 14 urinalysis 93 suspect this is from hypovolemic hyponatremia superimposed with decreased p.o. intake
Suggest continue normal saline 1 cc/kg
Will check serial BMPs
Fluid restrict 1 L
Caution with overcorrection greater than 6 mEq per 24 hours
Please call nephrology if the signs of overcorrection greater than 128 within the first 12 hours
[2024-09-30 19:34] VITALS: BMI 19.8
[2024-09-30 20:08] VITALS: BP 156/102
[2024-09-30] MEDS: LOVENOX 40 MG SC (20:34)
[2024-09-30] MEDS: VITAMIN D3 (cholecalciferol) 50 MCG PO (20:34)
[2024-09-30 21:05] LABS: Blood Urea Nitrogen 9 mg/dl (7-17); Calcium 8.9 mg/dl (8.4-10.2); Carbon Dioxide 23 mmol/L (22-30); Chloride 103 mmol/L (98-107); Estimated Creatinine Clearance 83 ml/min; Glucose 126 mg/dl (70-99); Potassium 3.5 mmol/L (3.5-5.1); Sodium 133 mmol/L (135-145); eGFR > 60.00
--- NOTE | 2024-09-30 23:48 | PTCARENOTE ---
Pt arrived from ED to room 337-2. Pt oriented to room, call diaz within reach, will continue to monitor.
[2024-09-30 23:58] VITALS: BP 146/96
[2024-10-01 01:33] LABS: Blood Urea Nitrogen 9 mg/dl (7-17); Carbon Dioxide 27 mmol/L (22-30); Chloride 105 mmol/L (98-107); Estimated Creatinine Clearance 83 ml/min; Glucose 100 mg/dl (70-99); Potassium 3.7 mmol/L (3.5-5.1); Sodium 137 mmol/L (135-145); eGFR > 60.00
[2024-10-01] MEDS: TYLENOL PO ×2 (03:31→12:40)
[2024-10-01 06:00] VITALS: BMI 19.4
[2024-10-01 06:14] LABS: Blood Urea Nitrogen 9 mg/dl (7-17); Calcium 8.8 mg/dl (8.4-10.2); Carbon Dioxide 26 mmol/L (22-30); Chloride 104 mmol/L (98-107); Estimated Creatinine Clearance 83 ml/min; Glucose 87 mg/dl (70-99); Potassium 3.7 mmol/L (3.5-5.1); Sodium 136 mmol/L (135-145); eGFR > 60.00
[2024-10-01 08:08] VITALS: BP 167/111
--- NOTE | 2024-10-01 08:53 | W.PN.UPDATE ---
Update Note
Progress Note Update
I saw and evaluated the patient. I reviewed the resident�s note and agree with findings and plan as documented in the resident�s note.
No new complaints.
Gen: NAD, AAOx3.
Eyes: EOMI, PERRLA, no scleral icterus.
Neck: supple.
CV: remains RRR, +S1/S2, no m/r/g.
Resp: remains CTAB, no rales, wheezes, or rhonchi.
Abd: remains +BS, soft, NT, ND
Skin: No rashes.
Neuro: CN 2-12 intact, non-focal.
Psych: Normal mood and affect.
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 As warranted, consideration for further evaluation
with MRI of the brain. No evidence for significant narrowing of the common carotid arteries, carotid bulbs, or internal carotid arteries bilaterally. No significant narrowing of vertebral or basilar arteries. No evidence for intracranial large
vessel occlusion or high-grade stenosis. Not mentioned above, on sagittal reconstructions, incidental note is made of partially empty sella. This is often an incidental finding of no clinical significance, although it does have an association with
idiopathic intracranial hypertension. Many patients are asymptomatic and endocrinologically normal, although with some increasing reports of variable hypopituitarism and hyperprolactinemia. Heterogeneity of the thyroid gland, but with no evidence
for a nodule measuring greater than 1.5 cm. Based on recommendations from the air column radiology, no further imaging follow-up is felt to be needed.
MRI brain: No evidence of acute intracranial abnormality. Small focus of increased T2 and decreased T1-weighted signal within the left frontal lobe deep white matter, corresponding to the region of decreased density on CT. This is most likely
asymmetric leukomalacia. Differential consideration of a small old white matter infarct. Mild diffuse atrophy. Mild periventricular leukomalacia. Partially empty sella. This is often an incidental finding of no clinical significance, although it
does have an association with idiopathic intracranial hypertension. Many patients are asymptomatic and endocrinologically normal, although with some increasing reports of variable hypopituitarism and hyperprolactinemia.
Severe hypotonic hypovolemic hyponatremia:
-likely due to GI losses (vomiting) as well as possible SIADH related to pain from h/a
-discussed with renal on admission and NS was started
-Na now 136.
-Serum Osm 245, UOsm 93, Javed 14
-case discussed with Dr. Garcia over [employer] at 0857 on 10/01/24 and he stated that we do not need to use hypotonic fluid to decrease the sodium as the urine osmolality was low.
Note, acute CVA has been ruled out based on MRI brain above.
Other problems:
Hypokalemia, resolved
h/o SVT resolved with adenosis
Anxiety
FULL/Lovenox
Medically cleared for d/c.
Total time spent on d/c = 33 min. This included today's physical exam, progress note, review of laboratory and diagnostic data, preparation of discharge documents and prescriptions, and discussions about the pt's hospital course and discharge plan
with the patient and other medical insurance coding specialist involved in the patient's care.
[2024-10-01] MEDS: TYLENOL 650 MG PO (08:56)
[2024-10-01] MEDS: VITAMIN D3 (cholecalciferol) 50 MCG PO (08:56)
--- NOTE | 2024-10-01 09:30 | W.DCSUMMARY ---
Addendum entered and electronically signed by Jose Luis Zhu MD 10/01/24 12:10:
Read, reviewed, and agree. See same day progress note for additional details.
Original Note:
Discharge Summary
Discharge Data
Date of Admission: 09/30/24
Date of Discharge: 10/01/24
-
Pending Results: No
Hospital Course
Discharging Physician : Dr. Jose Luis Zhu
Disposition : Home
Primary care physician : Dr. Mathews
Principal Discharge diagnosis : Severe hypotonic hypovolemic hyponatremia,
Chronic Discharge diagnosis : hypokalemia, anxiety
Hospital Course : 68 y/o F, Full code, with past medical history of arrhythmia, anxiety, renal calculus has a headache with associated nausea,vomiting, dizziness that started 3 days ago. The headache is located posteriorly on the back of the head,
is rated moderate to severe in intensity, intermittent in nature, and radiates down to the left side of the neck. The headache started on Saturday and was associated with 10 episodes of non bloody diarrhea, and then on Saturday she had more than 3
episodes of non bloody vomiting. On Saturday the headache started to subside a little but then it started to get worse again and patient was admitted to the ER. Serum creatinine level on admission was 121 and potassium was 2.9. Legionella testing
was negative. EKG showed normal sinus rhythm. After discussing with nephrology patient was placed on normal saline for now. BMP was checked IV every 4 hourly. We suspect that it is likely due to GI losses like vomiting. For hypokalemia 80 mEq
of potassium were given. Today on 10/01/2024 her sodium and potassium were normalized , no longer feels headaches dizziness nausea vomiting diarrhea, medically stable for discharge. CTA imaging showed leukomalacia and a small focus of white matter
and requested follow-up MRI of the brain. Follow-up MRI did not reveal any acute intracranial abnormality.
Small Mycobacterium avium complex infection:
Was taking antibiotics azithromycin and cefpodoxime for a possible Mycobacterium avium complex infection which was not confirmed. Likely suspicion that previous providers thought that Mycobacterium avium complex was the one causing patient's mild
bronchiectasis. Pulmonology was consulted and try to get sputum samples but could not do so patient should likely get bronchoscopy outpatient with pulmonology. Antibiotics stopped today could also be a possible cause of the patient's hyponatremia.
Increased density within white matter of the left frontal lobe:
MRI negative
Anxiety: Continue venlafaxine and lorazepam
Important imaging findings :
CTA head neck on 09/30/24:
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 As warranted, consideration for further evaluation
with MRI of the brain.
No evidence for significant narrowing of the common carotid arteries, carotid bulbs, or internal carotid arteries bilaterally.
No significant narrowing of vertebral or basilar arteries.
No evidence for intracranial large vessel occlusion or high-grade stenosis.
Not mentioned above, on sagittal reconstructions, incidental note is made of partially empty sella. This is often an incidental finding of no clinical significance, although it does have an association with idiopathic intracranial hypertension. Many
patients are asymptomatic and endocrinologically normal, although with some increasing reports of variable hypopituitarism and hyperprolactinemia.
Heterogeneity of the thyroid gland, but with no evidence for a nodule measuring greater than 1.5 cm. Based on recommendations from the air column radiology, no further imaging follow-up is felt to be needed.
Percent stenosis is calculated using NASCET criteria.
MRI of 10/01/2024
No evidence of acute intracranial abnormality.
Small focus of increased T2 and decreased T1-weighted signal within the left frontal lobe deep white matter, corresponding to the region of decreased density on CT. 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 Differential consideration of a small
old white matter infarct.
Mild diffuse atrophy. Mild periventricular leukomalacia.
Partially empty sella. This is often an incidental finding of no clinical significance, although it does have an association with idiopathic intracranial hypertension. Many patients are asymptomatic and endocrinologically normal, although with some
increasing reports of variable hypopituitarism and hyperprolactinemia.
Procedure findings :
Discharge Plan
-
Patient Disposition: Home (Routine Discharge)
Discharge Diagnosis/Procedures: Severe hypovolemic hyponatremia, hypokalemia, anxiety
Condition: Fair
Diet: Regular
Activity: As tolerated
Driving Restrictions: As prior to admission
Bathing Restrictions: None
Activity Restrictions/Additional Instructions:
CBC and CMP in 1 week with primary care
Instructions: Dehydration, Adult ED, Hyponatremia, Hypovolemia in adults
Referrals:
Herman Mathews Jr., DO [Family Provider] - in less than 1 week
Sindhu Edwards DO [Active] - in one to two weeks
Prescriptions:
Continued
acetaminophen 325 mg Tablet
650 mg PO Q4HPRN PRN (Reason: mild pain) Qty: 30 0RF
polyethylene glycol 3350 [Miralax] 17 gram Powder In Packet
17 g PO DAILY Qty: 30 0RF
venlafaxine 150 mg Capsule,Extended Release 24hr
150 mg PO DAILY Qty: 30 0RF
ondansetron 8 mg Tablet,Disintegrating
8 mg PO Q8HPRN PRN (Reason: nausea) Qty: 30 0RF
lorazepam 0.5 MG tablet
0.5 mg PO DAILYPRN PRN (Reason: anxiety) Qty: 30 0RF
estradiol [Estrace] 0.01 % (0.1 mg/gram) Cream
1 applic VAGINAL WESA Qty: 30 0RF
cholecalciferol (vitamin D3) [Vitamin D3] 25 mcg (1,000 unit) Tablet
50 mcg PO DAILY Qty: 30 0RF
Visbiome 112.5 billion cell Capsule
1 cap PO DAILY Qty: 30 0RF
PreserVision AREDS 2 Plus MV 200 mcg-15 mcg- 5 mg-1 mg Capsule
1 cap PO BID Qty: 30 0RF
Discontinued
azithromycin 250 mg Tablet
0 mg PO .COMPLEX
Rx Instructions:
For 250 mg dose pack: take 500 mg today (day 1), then 250 mg for 4 days (days 2-5)
cefdinir 300 mg Capsule
300 mg PO BID
Discharge Orders:
Discharge Patient (As Directed); Ordered 10/01/24
Ordered By: Jordan Pascual
Discharge Date and Time
Print Language: KAZAKH
--- NOTE | 2024-10-01 09:42 | W.PN.HOSP.TC ---
Today's Communication/Plan
-
- discharge patient
- Follow up with pulmonolgy outpatient
Assessment / Plan
Assessment / Plan
Moderate hyponatremia- resolved:
- No longer has headaches, vomiting, nausea
- Most recent BMP shows a sodium level of 136
-Most likely due to multiple episodes of vomiting and diarrhea
-Ordered normal saline
-As needed Zofran for nausea
Headache:
-As needed pain control with Tylenol and tramadol
Possible mycobacterium avium complex infection:
- She was on antibiotics for this but no confirmed diagnosis via testing
- She will need to get outpatient bronchoscopy with pulmonology
- Was not able to produce sputum for sputum cultures
Focus of decreased density within white matter of left frontal lobe:
-Head neck CTA showed this finding
- Mri showed :
No evidence of acute intracranial abnormality.
Small focus of increased T2 and decreased T1-weighted signal within the left frontal lobe deep white matter, corresponding to the region of decreased density on CT. 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 Differential consideration of a small
old white matter infarct.
Mild diffuse atrophy. Mild periventricular leukomalacia.
Anxiety:
-Continue venlafaxine for discharge
-Continue lorazepam
Full code
dvt ppx: lovenox
Anticipated Discharge: Today
Subjective/Interval History
-
Date of Service: October 01, 2024
No overnight events.
no acute medical problems.
Objective Data
-
Labs:
Laboratory Results
10/01/24 10/01/24 10/01/24
01:06 05:09 10:00
Sodium 137 136 Pending
Potassium 3.7 3.7 Pending
Chloride 105 104 Pending
Carbon Dioxide 27 26 Pending
BUN 9 9 Pending
Creatinine 0.5 L 0.4 L Pending
Glucose 100 H 87 Pending
Calcium 9.0 8.8 Pending
10/01/24
14:00
Sodium Pending
Potassium Pending
Chloride Pending
Carbon Dioxide Pending
BUN Pending
Creatinine Pending
Glucose Pending
Calcium Pending
Vital Signs:
Vital Signs
Temp Pulse Resp BP Pulse Ox
98.4 F 82 18 167/111 96
10/01/24 08:08 10/01/24 08:08 10/01/24 08:08 10/01/24 08:08 10/01/24 08:08
I&O
09/30/24 10/01/24 10/02/24
06:59 06:59 06:59
Intake Total 480 / 480
Balance 480 / 480
Review of Systems
-
History Source: Patient
Constitutional: Denies Fever or Chills
EENT: Denies Runny Nose or Blurry Vision
Respiratory: Denies Cough or Trouble Breathing
Cardiac: Denies Chest Pain, Diaphoresis, Palpitations or Syncope
Abdomen/GI: Denies Abdominal Pain, Nausea, Vomiting, Diarrhea, Constipated or Bloody Stools
Genitourinary: Denies Dysuria
Musculoskeletal: Denies Joint Pain
Skin: Denies Itching or Rash
Physical Exam
-
Respiratory: Clear to Auscultation
Cardiac: Regular Rhythm and S1/S2
GI: Soft and Nontender
Musculoskeletal: No Clubbing, No Cyanosis and No Edema
Skin: Warm and Dry
Neuro: Awake, Alert, Oriented and AO x 3
Data Reviewed
-
Medical Tests (Nuc Med, Echo etc): Image personally visualized and interpreted and Discussed with Physician
Labs: Labs Reviewed by me and Discussed with Physician
[2024-10-01 11:01] LABS: Blood Urea Nitrogen 9 mg/dl (7-17); Calcium 9.2 mg/dl (8.4-10.2); Carbon Dioxide 29 mmol/L (22-30); Chloride 101 mmol/L (98-107); Estimated Creatinine Clearance 81 ml/min; Glucose 88 mg/dl (70-99); Potassium 3.7 mmol/L (3.5-5.1); Sodium 137 mmol/L (135-145); eGFR > 60.00
[2024-10-01 11:33] VITALS: BP 176/116
--- NOTE | 2024-10-01 13:14 | W.PN.NEPH.PH ---
Today's Communication / Plan
-
Follow BMP
Assessment/Plan
-
Impression
#1 hyponatremia
#2 hypokalemia
#3 nausea vomiting diarrhea
4 anxiety/depression
Plan
Follow BMP as outpatient
Correction is appropriate as her urine osmolality was low and she would have self corrected
BP is elevated in the hospital though she reports no hypertension history
OK to restart the venlafaxine given low urine osmolality
I believe she is reliable to check her blood pressures at home and to follow-up with her primary care physician within 1 week to track her blood pressures.
-
-
Date of Service: October 01, 2024
CC / HPI / ROS
-
Chief Complaint:
Hyponatremia
History of Present Illness:
Sodium up to 137 with saline
No further nausea or vomiting
BP high
Review of Systems:
No chest pain or shortness of breath.
Labs
-
Labs:
WBC 8.7 10^3/uL (4.8-10.8) 09/30/24 11:05
RBC 4.63 10^6/uL (4.20-5.40) 09/30/24 11:05
Hgb 14.8 g/dL (12.0-16.0) 09/30/24 11:05
Hct 40.3 % (37.0-47.0) 09/30/24 11:05
Plt Count 286 10^3/uL (130-400) 09/30/24 11:05
eGFR > 60.00 10/01/24 10:01
Albumin 5.0 g/dl (3.5-5.0) 09/30/24 11:05
Physical Exam
-
Vital Signs:
Vital Signs
Temp Pulse Resp BP Pulse Ox
98.4 F 84 18 176/116 98
10/01/24 08:08 10/01/24 11:33 10/01/24 11:33 10/01/24 11:33 10/01/24 11:33
Cardiovascular:: Regular rate and rhythm
Respiratory:: Bilateral: Coarse
Lung Excursion:: Normal
Abdomen:: Nontender and Soft
Bowel Sounds:: Normal
Extremity Edema:: None: Bilateral:
--- NOTE | 2024-10-01 13:17 | PTCARENOTE ---
Discharge instructions reviewed, VS taken - BP remains high. Discussed with discharging provider - will continue with discharge and put pt back on SSRI, follow up with PCP.
--- NOTE | 2024-10-01 15:03 | CM ---
Alert awake oriented patient who lives with her Tico in a 2 story home with 2 steps to enter and bed/bathroom on first floor. She is independent in driving and all activates of daily living.Offered VN she declined need. No adaptive devices.
Tico will drive her home.
No VN in past . No SNF hx
Pharmacy [facility]
PCP Dr Mathews
PLAN Home with no needs
== END 2024-10-01 13:18 | disposition home or self-care (01) | DRG 641 ==
LOC: 3 WEST ACU 15:03
PROVIDERS: Emergency Medicine; Physician Assistant; ADMITTING PHYSICIAN Internal Medicine; CONSULT PHYSICIAN Internal Medicine; EMERGENCY PHYSICIAN Student in an Organized Health Care Education/Training Program; FAMILY PHYSICIAN Family Medicine; OTHER PHYSICIAN Internal Medicine Infectious Disease; OTHER PHYSICIAN Internal Medicine Nephrology
DX: E87.1 Hypo-osmolality and hyponatremia (principal); A31.0 Pulmonary mycobacterial infection; K52.1 Toxic gastroenteritis and colitis; E87.6 Hypokalemia; R51.9 Headache, unspecified; F41.9 Anxiety disorder, unspecified; J47.9 Bronchiectasis, uncomplicated; F32.A Depression, unspecified; E04.2 Nontoxic multinodular goiter; T36.1X5A Adverse effect of cephalosporins and other beta-lactam antibiotics, initial encounter; E86.1 Hypovolemia; I95.1 Orthostatic hypotension; R11.11 Vomiting without nausea; Z87.891 Personal history of nicotine dependence; Z88.1 Allergy status to other antibiotic agents; Z88.0 Allergy status to penicillin; Z79.899 Other long term (current) drug therapy
CPT/HCPCS: 70496; 70498; 70551; 80048; 80053; 81003; 81015; 82570; 83735; 83930; 83935; 84300; 85025; 85610; 85730; 87449; 93005; 94640; 96360; 99284; Q9967

== ENCOUNTER → 2024-10-26 09:40 | Outpatient (REF) | payer MEDICARE, SELFPAY | LOC: RAD 09:40 | PROVIDERS: ATTENDING PHYSICIAN Internal Medicine Critical Care Medicine; FAMILY PHYSICIAN Family Medicine | DX: J47.9 Bronchiectasis, uncomplicated (principal) | CPT/HCPCS: 71250 ==

== ENCOUNTER → 2024-11-05 10:30 | Outpatient (REF) | payer MEDICARE, SELFPAY | LOC: WDC 10:30 | PROVIDERS: ATTENDING PHYSICIAN Family Medicine | DX: Z12.31 Encounter for screening mammogram for malignant neoplasm of breast (principal) | CPT/HCPCS: 77063; 77067 ==

== ENCOUNTER → 2025-09-27 09:14 | Outpatient (REF) | payer MEDICARE, SELFPAY | LOC: HWRAD 09:14 | PROVIDERS: ATTENDING PHYSICIAN Family Medicine | DX: E78.2 Mixed hyperlipidemia (principal) | CPT/HCPCS: 75571 ==